=== PATIENT | male | born 1960 | race Caucasian/White ===

== ENCOUNTER 2016-08-24 22:27 | Emergency (ER) | payer BC ==
[~2016-08-24 22:27] MED LIST: ASPIRIN PO; ASPIRIN81 M2 PO; ATENOLOL PO; ATENOLOL-CHLORT1 TA2 PO; KEFLEX500 MG PO; NORCO 7.5-3251 EACH PO; PRAVACHOL PO; ZOCOR PO
== END 2016-08-24 23:06 | disposition home or self-care (01) ==
LOC: CED 22:27
DX: T21.22XA Burn of second degree of abdominal wall, initial encounter (principal); T24.221A Burn of second degree of right knee, initial encounter; I10 Essential (primary) hypertension; X08.8XXA Exposure to other specified smoke, fire and flames, initial encounter; Y92.009 Unspecified place in unspecified non-institutional (private) residence as the place of occurrence of the external cause
CPT/HCPCS: 99283